=== PATIENT | male | born 1995 | race Caucasian/White ===

== ENCOUNTER 2017-01-21 05:03 | Emergency (ER) | payer SELFPAY ==
[~2017-01-21] VITALS: Ht 167.6 cm; Wt 80.0 kg
[2017-01-21 05:04] VITALS: BP 126/85; PULSE 78; RESP 18; TEMP 98.2; O2SAT 99
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
[2017-01-21 05:10] VITALS: O2SAT 99
[2017-01-21] MEDS ORDERED: MORPHINE SULFATE 4 MG/ML INJ IV ONE (05:15)
[2017-01-21] MEDS ORDERED: SODIUM CHLORIDE 0.9% FLUSH 10 ML FLUSH IVF PRN (05:15)
[2017-01-21 05:46] LABS: AUTOMATED NEUTROPHIL # 4.6 TH/MM3 (1.8-7.7); BASOPHIL % 0.3 % (0.0-2.0); EOSINOPHIL # 0.1 TH/MM3 (0-0.4); EOSINOPHIL % 1.8 % (0.0-4.0); HEMATOCRIT 46.5 % (39.0-51.0); HEMO FLAGS DIFF FINAL; LYMPH % 24.5 % (9.0-44.0); LYMPHOCYTE # 1.7 TH/MM3 (1.0-4.8); MEAN CELL VOLUME 96.5 FL (80.0-100.0); MEAN CORPUSCULAR HEMOGLOBIN 32.4 PG (27.0-34.0); MEAN CORPUSCULAR HGB CONC 33.6 % (32.0-36.0); MONO % 5.7 % (0.0-8.0); NEUT % 67.7 % (16.0-70.0); PLATELET COUNT 255 TH/MM3 (150-450); RED BLOOD COUNT 4.82 MIL/MM3 (4.50-5.90); RED CELL DISTRIBUTION WIDTH 14.3 % (11.6-17.2); WHITE BLOOD COUNT 6.9 TH/MM3 (4.0-11.0)
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
[2017-01-21 05:58] LABS: BICARBONATE 23.9 MEQ/L (21.0-32.0)
[2017-01-21] MEDS ORDERED: POTASSIUM CHLORIDE 25 MEQ EFFERVESCENT TAB PO ONE (06:15)
[2017-01-21 07:21] VITALS: BP 118/94; PULSE 86; RESP 20; O2SAT 98
== END 2017-01-21 07:34 | disposition short-term general hospital (02) ==
LOC: NEPE 05:03
DX: S02.600A Fracture of unspecified part of body of mandible, unspecified side, initial encounter for closed fracture (principal); Y09 Assault by unspecified means
CPT/HCPCS: 70450; 70486; 72125; 80048; 80307; 85025; 99285